=== PATIENT | male | born 1970 | race Caucasian/White ===

== ENCOUNTER 2018-07-06 16:57 | Emergency (ER) | payer OTHER, SELFPAY ==
[2018-07-06 17:01] VITALS: BP 151/82; PULSE 77; RESP 18; TEMP 36.4; O2SAT 97
--- NOTE | 2018-07-06 17:09 | ED.SKABFB ---
HPI - Skin/Abscess/Foreign Bdy <KASIA Martel - Last Filed: 07/06/18 17:56> General Chief complaint: Skin/Abscess/Foreign Body Stated complaint: right leg rash, thinks is infected Time Seen by Provider: 07/06/18 17:09 Source: patient Mode of arrival: ambulatory Limitations: no limitations History of Present Illness HPI narrative: pt says about 5 days ago, felt like something bit or stung him while he had shoe on, never saw insect, had wound to type of foot and since then there is redness now in foot and it is spreading up to the ankle complaint: lesion and discoloration Onset (ago): day(s) (5) Location: RLE and R foot Severity: mild Pain Consistency: constant Relieving factors: none Exacerbating factors: palpation Associated symptoms: denies other symptoms Treatments prior to arrival: none Related Data Previous Rx's Medication Instructions Recorded cephalexin [Keflex] 500 mg PO BID #20 cap 07/06/18 ibuprofen 800 mg PO TID PRN #20 tab 07/06/18 mupirocin 1 applictn TOP BID #15 gram 07/06/18 Allergies Allergy/AdvReac Type Severity Reaction Status Date / Time No Known Drug Allergies Allergy Verified 07/06/18 17:04 Review of Systems <KASIA Martel - Last Filed: 07/06/18 17:56> Review of Systems ROS Unobtainable: All systems reviewed & are unremarkable except as noted in HPI and below Constitutional Reports as per HPI and Reports system reviewed and no additional complaints, except as docu Musculoskeletal Reports as per HPI, Reports abnormal gait, Denies deformity, Reports limited range of motion, Denies muscle weakness and Denies numbness Integumentary/Breasts Reports as per HPI, Reports erythema, Denies unusual bruising and Reports wounds Neurologic Reports abnormal gait and Denies numbness PFSH <KASIA Martel - Last Filed: 07/06/18 17:56> Social History Smoking Status: Current every day smoker Social History Smoking Status: Current every day smoker Exam <KASIA Martel - Last Filed: 07/06/18 17:56> Initial Vital Signs Initial Vital Signs: Vital Signs Temperature 97.5 F L 07/06/18 17:01 Pulse Rate 77 07/06/18 17:01 Respiratory Rate 18 07/06/18 17:01 Blood Pressure 151/82 H 07/06/18 17:01 Pulse Oximetry 97 07/06/18 17:01 Const General: cooperative, healthy appearing, comfortable, well developed and well groomed Orientation: alert, awake and oriented x3 HENMT Head: normal to inspection and normocephalic Ears: hearing grossly normal bilaterally Nose: external nose normal Face and sinus: normal facial exam Eyes General: appearance normal, both eyes and all related structures Visual Hampton: normal visual hampton by confrontation Eyelids: eyelids normal Pupils: PERRL Neck Neck: normal visual inspection, full ROM and trachea midline Resp Effort & Inspection: normal respiratory effort and able to speak in complete sentences Back/Spine/Pelvis Back: normal to inspection Cervical Spine: cervical ROM normal Thoracic/Lumbar Spine: thoraco-lumbar ROM normal Skin General: no rashes or lesions noted, elasticity normal, turgor normal and erythema Rashes: no rashes Neuro General: alert, awake and oriented x3 Cranial Nerves: CN's II-XI intact bilaterally Cognition: normal cognition Speech: speech normal Motor: muscle tone normal throughout Sensory Exam: no sensory deficits noted Extrem General: normal to inspection, full ROM, capillary refill normal and limp Right upper extremity: normal to inspection and full ROM Left upper extremity: normal to inspection and full ROM Right lower extremity: normal to inspection, normal capillary refill and foot; ROM limited Left lower extremity: normal to inspection and full ROM Other: decreased rom of foot and ankle secondary to pain, abrasion noted to top of R foot with mild erythema streaking going up foot to ankle Psych Appearance: grossly normal and well kempt Mental Status: mental status grossly normal Mood: congruent mood Affect: normal affect Attitude: cooperative Thought Process: normal Thought Content: normal Judgment: judgment good <Liliana Blank DO - Last Filed: 07/07/18 07:58> Initial Vital Signs Initial Vital Signs: Vital Signs Temperature 97.5 F L 07/06/18 17:01 Pulse Rate 77 07/06/18 17:01 Respiratory Rate 18 07/06/18 17:01 Blood Pressure 151/82 H 07/06/18 17:01 Pulse Oximetry 97 07/06/18 17:01 Course <KASIA Martel - Last Filed: 07/06/18 17:56> Vital Signs - 8 hr 07/06/18 17:01 Temperature 97.5 F L Pulse Rate 77 Respiratory Rate 18 Blood Pressure 151/82 H Pulse Oximetry 97 <Liliana Blank DO - Last Filed: 07/07/18 07:58> Vital Signs - 8 hr 07/06/18 17:01 Temperature 97.5 F L Pulse Rate 77 Respiratory Rate 18 Blood Pressure 151/82 H Pulse Oximetry 97 MDM - Skin/Abscess/Foreign Bdy <KASIA Martel - Last Filed: 07/06/18 17:56> Differential Diagnosis Likely abscess of skin or subcutaneous tissue, viral exanthem, allergic reaction to drug, cellulitis, insect bites, impetigo and contact dermatitis Discharge Plan Departure Patient Disposition: Home Clinical Impression: Cellulitis Discharge Date/Time: 07/06/18 18:03 Interventions: ED Discharge Assessment Last Done: 07/06/18 18:03 Instructions: DI for Cellulitis -- Adult Activity Restrictions/Additional Instructions: wash wound at least 3-4 times daily Prescriptions: New ibuprofen 800 mg tablet 800 mg PO TID PRN (Reason: pain) Qty: 20 RF: 0 cephalexin [Keflex] 500 mg capsule 500 mg PO BID Qty: 20 RF: 0 mupirocin 2 % ointment 1 applictn TOP BID Qty: 15 RF: 0 Referrals: Gabriele Watts MD [Physician] - (follow up recommended in approx 3 days for wound recheck) <Liliana Blank DO - Last Filed: 07/07/18 07:58> Cosign ED Attending Cosignature Attestation: I was immediately available in the department for consultation. This documentation has been reviewed and I agree with assessment and plan. Supervised by Liliana Blank DO
== END 2018-07-06 18:03 | disposition home or self-care (01) ==
PROVIDERS: Emergency Provider Nurse Practitioner
DX: L03.90 Cellulitis, unspecified (principal)
CPT/HCPCS: 99282; 99283

== ENCOUNTER → 2020-03-01 13:23 | Outpatient (CLI) | payer OTHER, SELFPAY ==
--- NOTE | 2020-03-01 | DI.MRI.S_ITS ---
PROCEDURE: MR WRIST RT W CON INDICATIONS: PAIN IN RIGHT WRIST TECHNIQUE: After the administration of 3-4 mL of dilute intra-articular Gadolinium contrast into the radiocarpal compartment, coronal T1 spin echo with fat saturation and T2 fast spin echo with fat saturation, axial T1 spin echo and T2 fast spin echo with fat saturation, sagittal T1 spin echo with and without fat saturation through the wrist. COMPARISON: None. FINDINGS: Image quality: Excellent. Bones and cartilage: The carpal bones are normally aligned. No bone marrow contusions or fractures. No evidence for avascular necrosis. Degenerative cystic changes noted within the distal scaphoid. There is radiocarpal joint degeneration with partial thickness chondral loss. Chronic appearing cortical deformity possibly from remote fracture, along the distal pole of the scaphoid Carpal ligaments: Rupture of the scapholunate ligament is present involving the dorsal, volar and membranous segments. Lunotriquetral ligament appears intact. There is extensive gadolinium extravasation into the mid-carpal compartment. The radioscaphocapitate and radiolunotriquetral ligaments appear intact. The arcuate ligament and short radiolunate ligament also appear normal. The dorsal intercarpal and radiotriquetral ligaments appear intact. On sagittal images, the pisohamate ligament appears intact. Triangular fibrocartilage complex: The triangular fibrocartilage disc, with its styloid and foveal lamina, appears intact. No gadolinium extravasation into the distal radioulnar joint. The adjacent meniscal homolog appears normal. The ulnar collateral ligament appears intact. The extensor carpi ulnaris tendon is normal in location and morphology. Tendons and soft tissues: The carpal tunnel structures appear normal, including the median nerve. The ulnar nerve appears normal within Guyon's canal. All six extensor tendon compartments demonstrate normal morphology, without pathologic tendon sheath fluid. No soft tissue ganglion cysts. IMPRESSION: Rupture of the scapholunate ligament with associated leakage of injected contrast material into the midcarpal compartment. Intact appearance of the TFCC. Radiocarpal joint degeneration. Dictated by: Dom Garcia M.D. on 03/01/2020 at 14:47 Approved by: Dom Garcia M.D. on 03/01/2020 at 14:54
--- NOTE | 2020-03-01 | DI.RAD.S_ITS ---
PROCEDURE: FL WRIST INJECTION MR/CT RT INDICATIONS: PAIN IN RIGHT WRIST COMPARISON: None. TECHNIQUE: After informed consent had been obtained, the wrist was examined fluoroscopically, and a site chosen for injection of the radiocarpal compartment from a dorsal approach. Skin was prepped and draped in a sterile fashion and 1% lidocaine infiltrated from the skin down to the articular surface. A hypodermic needle was then introduced into the articular space and a modest amount of contrast medium was instilled confirming intra-articular needle tip placement. This was followed by approximately 4 mL of a dilute gadolinium solution. Needle was removed and dressing was applied. The patient experienced no complications throughout the procedure and left the fluoroscopic suite in no apparent distress. FINDINGS: A single fluoroscopic spot image demonstrates intra-articular location to injected iodinated contrast. IMPRESSION: Successful fluoroscopic-guided administration of dilute Gadolinium solution for wrist MR arthrogram. Dictated by: Dom Garcia M.D. on 03/01/2020 at 15:39 Approved by: Dom Garcia M.D. on 03/01/2020 at 15:39
== END ==
PROVIDERS: Referring Provider Orthopaedic Surgery; Visit Provider Orthopaedic Surgery
DX: M25.531 Pain in right wrist (principal); M19.031 Primary osteoarthritis, right wrist
CPT/HCPCS: 20605; 73222; 77002